=== PATIENT | female | born 1985 | race Caucasian/White ===

== ENCOUNTER 2016-09-17 05:33 | Observation (INO) | payer OTHER ==
[~2016-09-17] VITALS: Ht 172.7 cm; Wt 98.0 kg
--- NOTE | ~2016-09-17 | S ---
[facility] [place] [address] [address] SURGICAL PATH RPT PROCEDURE Name: ANGELA VELAZQUEZ Room #: 426-P JEAN-PIERRE Anderson#: [id number] Admission: 09/17/16 Date of : 81 Discharge: 09/18/16 Report #: [id number] Path Case #: [id number] PATHOLOGY REPORT COLLECTION DATE: 09/17/2016 RECEIVED DATE: 09/17/2016 SUBMITTING PHYS: Dr. Germán Solomon OTHER PHYS: Dr. Nell Tan SPECIMEN(S) RECEIVED: A.Gallbladder * * * * * * * * * * * * FINAL DIAGNOSIS: Gallbladder with "gallbladder cholecystectomy": - Moderate chronic cholecystitis with cholelithiasis. PATHOLOGIST: Ulices Ch M.D. REPORT ELECTRONICALLY SIGNED BY: Ulices Ch M.D. DATE/TIME: 09/22/2016 15:56 * * * * * * * * * * * * GROSS PATHOLOGY: Received in formalin labeled "Angela Velazquez gallbladder," is a 6.2 x 2.5 x 2.0 cm, previously opened gallbladder with green zaidi serosal surfaces. Opening the gallbladder reveals velvety and light green mucosa and an average wall thickness of 0.1 cm. Multiple small light zaidi to dark green calculi are present and no masses are noted grossly. Girl Friday sections from the body and fundus are submitted along with the proximal margin in cassette A1. (KAH; 09/18/2016) CLINICAL HISTORY: Chronic cholecystitis INITIAL CPT CODE(S): A; 58965 Professional services performed by [facility], [address], [place] [address]. Technical services performed by [facility], [address] [facility], [address], [place] [address]. [facility] [address] [place] [address] SURGICAL PATH RPT PROCEDURE Name: ANGELA VELAZQUEZ Room #: 426-P JEAN-PIERRE Anderson#: [id number] Admission: 09/17/16 Date of : 81 Discharge: 09/18/16 Report #: [id number] Path Case #: [id number] [place] [address] PHONE: [phone] DIRECTOR: Emre Kuo M.D. * * * END OF REPORT * * *
--- NOTE | ~2016-09-17 | H ---
[facility] [address] [address] HISTORY AND PHYSICAL Name: ANGELA SHERMAN Room #: PRE [facility] M.R.#: [id number] Admission: Attend Phys: Germán Solomon MD Discharge: Date of : 81 Report #: [id number] THIS REPORT FOR: //name// CC: Mansi Tan MD PREOPERATIVE DIAGNOSIS: Cholecystitis with cholelithiasis. HISTORY OF PRESENT ILLNESS: The patient is a 31-year-old who has a complaint of abdominal pain. 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 This lasted for about an hour. She felt dizzy, nausea, felt pale. She originally thought that her blood sugar was low. She has had 2 episodes. Second episode about a week after that. She had lunch with broccoli cheddar cheese soup, felt funny. She left work and on the road, she experienced severe upper abdominal pain. She had a pullover. The patient went to the emergency room at [facility]. She had sweat, was pale white, apparently her liver functions were elevated. She said her pain was 10/10. The pain lasted about an hour and half. When she left the ER, her pain was about 3/10. That evening, the pain got worse again after eating grilled cheese. It does not radiate to her back. She does have nausea, no vomiting. Mother has had gallbladder removal. No diarrhea. The patient's pain was across the upper abdomen below the chest. Sharp and had pressure from the inside. The patient had an ultrasound performed that did show gallstones. Multiple small stones were found. No gallbladder wall thickening, no ductal dilatation. The patient is recommended to have gallbladder removed. PAST MEDICAL HISTORY: She is healthy. No heart disease, high blood pressure, liver or kidney disease, lung disease, diabetes, bleeding disorder or blood clot. She has environmental allergy. No allergies to medication. The patient did have a gastric sleeve and in 2014, she lost about 100 pounds. MEDICATIONS: Zyrtec. ALLERGIES: None to medication. FAMILY HISTORY: There is diabetes type 2 in the family and high blood pressure. SOCIAL HISTORY: The patient works in medical office billing. She does not smoke and does not drink. REVIEW OF SYSTEMS: Negative. No headache, chest pain, shortness of breath or palpitation. No numbness or weakness. PHYSICAL EXAMINATION: GENERAL: The patient is a well-nourished female, in no acute distress. [facility] [address] [place] [address] HISTORY AND PHYSICAL Name: ANGELA SHERMAN Room #: [facility] M.R.#: [id number] Admission: Attend Phys: Germán Solomon MD Discharge: Date of : 81 Report #: [id number] HEENT: Pupils react to light. Extraocular muscles are intact. NECK: Soft and supple, no masses, no JVD. LUNGS: Clear to auscultation. HEART: Regular rate and rhythm. No murmur or gallop. ABDOMEN: She does have right upper quadrant tenderness, moderate in nature. No guarding, rigidity or mass detected. No ascites. EXTREMITIES: No cyanosis, clubbing or edema. IMPRESSION: The patient is a 31-year-old who had attack of pain a few weeks ago. She had 2 episodes close together. They seemed to be related to food. She does have gallstone. The second attack required emergency room visit. The patient's history is consistent with gallbladder disease. She is recommended to have gallbladder removed. She has multiple small stones. The patient is brought in for laparoscopic cholecystectomy. Procedure discussed in detail. Risks of bleeding, infection, common bile duct injury were discussed. The patient wished to proceed. By: [id number] Germán Solomon MD /nt
--- NOTE | ~2016-09-17 | O ---
[facility] [place] [address] OPERATIVE REPORT Name: ANGELA SHERMAN Room #: 426-P [facility] Jocelyn Anderson#: [id number] Admission: 09/17/16 Attend Phys: Germán Solomon MD Discharge: 09/18/16 Date of : 81 Report #: [id number] THIS REPORT FOR: //name// CC: BINA Tan MD DATE OF SERVICE: 09/17/2016 PREOPERATIVE DIAGNOSIS: Cholecystitis with cholelithiasis. POSTOPERATIVE DIAGNOSIS: Cholecystitis with cholelithiasis. PROCEDURES PERFORMED: Laparoscopic cholecystectomy with cholangiogram. SURGEON: Germán Solomon M.D. ANESTHESIA: General anesthesia. COMPLICATIONS: None. ESTIMATED BLOOD LOSS: 5 mL. FINDINGS: The gallbladder contained numerous stones, some of these were to 2-3 mm yellow cholesterol stone and then less than 1 mm blackish stone, likely 100 in number. Common bile duct is normal on operative cholangiogram. PROCEDURE NOTE: With the patient under general anesthesia, abdomen was prepped and draped in the sterile fashion. The patient received Ancef and during anesthetic induction, the patient was noted to have a rash on her face. No rash over the body. Possible antibiotic allergy to Ancef, but difficult to tell for sure. The patient's abdomen was prepped and draped in sterile fashion. A timeout was performed. A 1.5 cm incision was made infraumbilically. The fascia was identified, grasped with hemostat. Fascia was then opened under visualization. An 0 Vicryl placed on the fascial edges for retraction. Veress needle was then placed through peritoneum. Abdominal cavity was insufflated with CO2. After creating pneumoperitoneum pressure of 15, 11 mm trocar was placed. This was placed under visualization. No harm to the underlying tissue. There is no scar in this area. I can tell there is some scarring around the stomach from her gastric sleeve surgery. No adhesion to the abdominal wall. Two 5 mm trocars were placed in the right upper quadrant and another 5 mm trocar placed in the right epigastrium. Gallbladder was lifted over the liver. The gallbladder did not have any adhesion to it. The peritoneum over the cystic duct was easily dissected. The cystic duct was isolated, fairly normal size. Clip was placed in the junction of cystic duct to the gallbladder. Opening was [address] [address] OPERATIVE REPORT Name: ANGELA SHERMAN Room #: 426-P JEAN-PIERRE Anderson#: [id number] Admission: 09/17/16 Attend Phys: Germán Solomon MD Discharge: 09/18/16 Date of : 81 Report #: [id number] made in the cystic duct. The cystic duct was milked and there was no stone in the cystic duct. Cholangiogram catheter was placed. Fluoroscopic cholangiogram was obtained. Common bile duct filled out well. No filling defect. The cholangiogram catheter is entering the cystic duct. The tip of it is close to common duct. The catheter was then removed. No harm to the common duct was visualized. The proximal cystic duct was then clipped times 2 and then divided. The cystic artery was then identified and isolated without difficulty. This was clipped times 2 proximally and 1 distally and then divided. Gallbladder was freed from the liver bed without difficulty. Gallbladder was placed in a specimen bag and then retrieved through the infraumbilical port. Gallbladder was opened off the field, contained numerous stones. They were all pretty small sized stones. There were 2 population, one is cholesterol stone and the other one is blackish stone, probably cholesterol also with bile. The liver bed was checked, hemostasis was excellent. Irrigation was aspirated out. CO2 was evacuated and trocars were removed. The infraumbilical fascial defect was closed with [id number] 0 Vicryl times 2. Skin was irrigated and closed with 5-0 PDS in a subcuticular fashion. Steri-Strips applied. The patient tolerated the procedure well. By: [id number] Germán Solomon MD /nt
[~2016-09-17 05:33] MED LIST: BENADRYL25 MG PO; MULTIVITAMINS1 EAC7 PO; ZYRTEC10 M5 PO
[2016-09-17 07:58] VITALS: BP 116/73
[2016-09-17 08:00] LABS: HEMATOCRIT 35.1 % (37.0-47.0); HEMOGLOBIN 12.2 gm/dL (12.0-15.0)
[2016-09-17 13:08] VITALS: BP 100/60
[2016-09-17 15:45] VITALS: BP 104/67
[2016-09-17 20:00] VITALS: BP 113/64
[2016-09-18 03:09] VITALS: BP 107/59
[2016-09-18 07:26] VITALS: BP 100/50
[2016-09-18] MEDS ORDERED: NORCO 5-325 TA1 EACH PO (12:10)
[2016-09-18 12:43] VITALS: BP 100/50
== END 2016-09-18 13:08 | disposition home or self-care (01) ==
LOC: OR 05:33 → TBA 05:33 → OR 12:15 → 4E 13:03 → OR 14:45 → 4E 09-18 13:08
PROVIDERS: Surgery
DX: K80.10 Calculus of gallbladder with chronic cholecystitis without obstruction (principal); Z83.3 Family history of diabetes mellitus; Z82.49 Family history of ischemic heart disease and other diseases of the circulatory system; Z79.899 Other long term (current) drug therapy
CPT/HCPCS: 50010; 50101; 50411; 50555; 50558; 51489; 51975; 53307; 53310; 55245; 55317; 56462; 56525; 56526; 62110; 62900; 70005